=== PATIENT | male | born 1985 | race Caucasian/White ===

== ENCOUNTER 2018-03-20 19:14 | Emergency (ER) | payer SELFPAY ==
--- NOTE | 2018-03-20 19:43 | ED PDOC ---
HPI: General Adult Chief Complaint (Provider): PSYCH EVAL History Per: Patient (32 Y/O MALE HERE FOR EVALUATION PRIOR TO INCARCERATION. HAS H/O "MENTAL HEALTH PROBLEMS" AND HAS BEEN NONCOMPLIANT ON [employer] X 4 WEEKS. STATES HE FEELS DEPRESSED SECONDARY TO RECENT ARREST. FEELS THAT HE IS CONTINUOUSLY GETTING IN TROUBLE WITHOUT REASON.) <Susana Hines - Last Filed: 03/20/18 19:44> <Ray Villar - Last Filed: 03/21/18 04:04> Time Seen by Provider: 03/20/18 19:41 Chief Complaint (Nursing): Medical Clearance Past Medical History Reviewed: Historical Data, Nursing Documentation, Vital Signs Vital Signs: Last Vital Signs Temp 98.0 F 03/20/18 19:17 Pulse 64 03/20/18 19:17 Resp 16 03/20/18 19:17 BP 144/78 03/20/18 19:17 Pulse Ox 98 03/20/18 19:17 - Family History Family History: States: No Known Family Hx <Susana Hines - Last Filed: 03/20/18 19:44> Vital Signs: Last Vital Signs Temp 98.3 F 03/21/18 02:48 Pulse 86 03/21/18 02:48 Resp 18 03/21/18 02:48 BP 127/66 03/21/18 02:48 Pulse Ox 100 03/21/18 02:48 <Ray Villar - Last Filed: 03/21/18 04:04> - Allergies Allergies/Adverse Reactions: Allergies Allergy/AdvReac Type Severity Reaction Status Date / Time No Known Allergies Allergy Verified 03/20/18 19:17 Review of Systems ROS Statement: Except As Marked, All Systems Reviewed And Found Negative <Susana Hines - Last Filed: 03/20/18 19:44> Physical Exam - Reviewed Nursing Documentation Reviewed: Yes Vital Signs Reviewed: Yes - Physical Exam Appears: Positive for: Well, Non-toxic, No Acute Distress Head Exam: Positive for: ATRAUMATIC, NORMAL INSPECTION, NORMOCEPHALIC Skin: Positive for: Normal Color, Warm, DRY Eye Exam: Positive for: EOMI, Normal appearance, PERRL ENT: Positive for: Normal ENT Inspection Neck: Positive for: Normal, Painless ROM Cardiovascular/Chest: Positive for: Regular Rate, Rhythm Respiratory: Positive for: CNT, Normal Breath Sounds Gastrointestinal/Abdominal: Positive for: Normal Exam, Soft Back: Positive for: Normal Inspection Extremity: Positive for: Normal ROM Neurologic/Psych: Positive for: Alert, Oriented <Susana Hines - Last Filed: 03/20/18 19:44> - ECG O2 Sat by Pulse Oximetry: 98 <Susana Hines - Last Filed: 03/20/18 19:44> Disposition - Patient ED Disposition Is Patient to be Admitted: Transfer of Care - Disposition Disposition: Transfer of Care Disposition Time: 20:00 Patient Signed Over To: Trish Holder Handoff Comments: PENDING CRISIS EVAL <Susana Hines - Last Filed: 03/20/18 19:44> <Ray Villar - Last Filed: 03/21/18 04:04> - Clinical Impression Clinical Impression: Medical clearance for incarceration, Adjustment disorder - Disposition Condition: FAIR Additional Instructions: Patient medically and psychiatrically cleared for incarceration Instructions: Adjustment Disorder - PA / BELLY DANCER / Resident Statement MD/DO has reviewed & agrees with the documentation as recorded. <Ray Villar - Last Filed: 03/21/18 04:04>
--- NOTE | 2018-03-21 02:36 | ED PDOC ---
- ECG O2 Sat by Pulse Oximetry: 98 - Progress ED Course And Treament: Case endorsed to commercial insurance underwriter from [employer] pending crisis eval Patient evaluated by dobie worker and cleared for discharge as per Dr. Bhakta <Trish Holder - Last Filed: 03/21/18 02:34> Disposition - POA Present On Arrival: None - Disposition Disposition: Discharged/Transfer to Law Enforcement Disposition Time: 02:36 <Trish Holder - Last Filed: 03/21/18 02:34> <Ray Villar - Last Filed: 03/21/18 06:48> - Clinical Impression Clinical Impression: Medical clearance for incarceration, Adjustment disorder - Disposition Condition: FAIR Additional Instructions: Patient medically and psychiatrically cleared for incarceration Instructions: Adjustment Disorder - PA / LIFE AGENT / Resident Statement /DO has reviewed & agrees with the documentation as recorded. <Ray Villar - Last Filed: 03/21/18 06:48>
[2018-03-21 02:49] VITALS: BP 127/66; RESP 18; O2SAT 100
[2018-03-21 03:25] VITALS: PULSE 86; TEMP 98.3
== END 2018-03-21 02:50 ==
LOC: H.ER 19:14
DX: F43.20 Adjustment disorder, unspecified (principal); Z91.19 Patient's noncompliance with other medical treatment and regimen; Z00.8 Encounter for other general examination

== ENCOUNTER 2018-03-23 18:52 | Emergency (ER) | payer SELFPAY ==
[2018-03-23 19:54] VITALS: BP 125/75; PULSE 92; RESP 16; TEMP 99.1; O2SAT 96
--- NOTE | 2018-03-23 21:08 | ED PDOC ---
HPI: CCC, URI, Sore Throat Chief Complaint (Provider): ENT Problem History Per: Patient History/Exam Limitations: no limitations Onset/Duration Of Symptoms: Persistent (x2 weeks) Current Symptoms Are (Timing): Still Present Additional Complaint(s): 32 year old male arrives to ED with a complaint of bad breath for the past 2 weeks. He denies any throat pain or difficulty breathing. Of note, patient additionally reports a scratchy throat after recent release from care home. Pt. also reports h/o "mental issues" and states he doesn't have any of his meds to take, requesting psych eval but denies any SI/HI PMD: none provided <Dora Cui - Last Filed: 03/23/18 23:19> <Ray Villar - Last Filed: 03/26/18 04:37> Time Seen by Provider: 03/23/18 19:57 Chief Complaint (Nursing): ENT Problem Past Medical History Reviewed: Historical Data, Nursing Documentation, Vital Signs Vital Signs: Last Vital Signs Temp 99.1 F 03/23/18 19:52 Pulse 92 H 03/23/18 19:52 Resp 16 03/23/18 19:52 BP 125/75 03/23/18 19:52 Pulse Ox 96 03/23/18 19:52 - Medical History PMH: Anxiety, Bipolar Disorder, Depression, Schizophrenia Denies: Diabetes, Hepatitis, HIV, HTN, Seizures, Sexually Transmitted Disease - Family History Family History: States: Unknown Family Hx <Dora Cui - Last Filed: 03/23/18 23:19> Vital Signs: Last Vital Signs Temp 99.1 F 03/23/18 19:52 Pulse 92 H 03/23/18 19:52 Resp 16 03/23/18 19:52 BP 125/75 03/23/18 19:52 Pulse Ox 96 03/24/18 12:38 <Ray Villar - Last Filed: 03/26/18 04:37> - Allergies Allergies/Adverse Reactions: Allergies Allergy/AdvReac Type Severity Reaction Status Date / Time No Known Allergies Allergy Verified 03/23/18 19:52 Review of Systems ROS Statement: Except As Marked, All Systems Reviewed And Found Negative ENT: Positive for: Other (bad breath with scratchy throat). Negative for: Throat Pain Respiratory: Negative for: Other (dyspnea) <CuiDora - Last Filed: 03/23/18 23:19> Physical Exam - Reviewed Nursing Documentation Reviewed: Yes Vital Signs Reviewed: Yes - Physical Exam Appears: Positive for: Non-toxic, No Acute Distress Skin: Positive for: Normal Color Eye Exam: Positive for: Normal appearance ENT: Negative for: Pharyngeal Erythema, Tonsillar Exudate, Tonsillar Swelling (or erythema) Neck: Positive for: Normal, Supple Cardiovascular/Chest: Positive for: Regular Rate, Rhythm Respiratory: Positive for: Normal Breath Sounds. Negative for: Respiratory Distress Neurologic/Psych: Positive for: Alert (x3), Oriented. Negative for: Motor/Sensory Deficits <Dora Cui Carlos - Last Filed: 03/23/18 23:19> - ECG O2 Sat by Pulse Oximetry: 96 (RA) Pulse Ox Interpretation: Normal <Dora Cui Carlos - Last Filed: 03/23/18 23:19> - Laboratory Results Result Diagrams: 03/24/18 01:09 03/24/18 01:09 <Ray Villar - Last Filed: 03/26/18 04:37> Medical Decision Making Medical Decision Making: Time: 1999 Initial Plan: * Rapid strep Time: 2029 --Patient remains concerned about hard material or stone from tonsils despite (- ) findings on exam. He requests a tonsillectomy be performed tonight by an ENT doctor to rid "bad breath". There is no infectious ideology and patient declined strep test when offered by provider. Patient expresses having mental health issues and requests a psychiatric evaluation. --Psychiatric evaluation initiated. demurrage worker at bedside. Crisis recommends [facility] screen. Pt. eloped from ED, despite being followed by security. PD called and pt. brought back to ED by police. Pt. changed, belongings taken, and 1:1 initiated. Pt accepting and signing in for psych admission. ----- --- ScribeAttestation: Documented byKeyla Law, acting as a scribe for Dora Cui PA-C. Provider ScribeAttestation: All medical record entries made by the Scribe were at my direction and personally dictated by me. I have reviewed the chart and agree that the record accurately reflects my personal performance of the history, physical exam, medical decision making, and the department course for this patient. I have also personally directed, reviewed, and agree with the discharge instructions and disposition. <Dora Cui - Last Filed: 03/23/18 23:19> Disposition - Patient ED Disposition Is Patient to be Admitted: Yes Discussed With DrLuis Alberto: Boubacar Garcia Comment: by crisis Doctor Will See Patient In The: ED - Disposition Disposition Time: 23:20 <Dora Cui - Last Filed: 03/23/18 23:19> <Ray Villar - Last Filed: 03/26/18 04:37> - Clinical Impression Clinical Impression: Schizophrenia - Disposition Condition: FAIR - PA / BODY SHOP FLOORPERSON / Resident Statement / has reviewed & agrees with the documentation as recorded. <Ray Villar - Last Filed: 03/26/18 04:37>
[2018-03-24 03:26] LABS: MEAN CORPUSCULAR HGB CONC 33.2 g/dL (33.0-37.0); MEAN PLATELET VOLUME 9.1 fl (7.2-11.7); NRBC % 0.1 % (0.0-0.0)
[2018-03-24 03:28] LABS: BASO % 0.3 % (0.0-2.0); EOS % 0.7 % (0.0-4.0); LYMPH # 2.1 K/uL (1.0-4.3); MEAN CELL VOLUME 87.5 fl (80.0-94.0); MEAN CORPUSCULAR HEMOGLOBIN 29.1 pg (27.0-31.0); MONO # 0.9 K/uL (0.0-0.8); MONO % 11.8 % (0.0-10.0); NEUT # 4.3 K/uL (1.8-7.0); NEUT % 58.2 % (50.0-75.0); RBC 5.17 Mil/uL (4.40-5.90); WHITE BLOOD COUNT 7.4 K/uL (4.8-10.8)
[2018-03-24 03:31] LABS: ALB/GLOB RATIO 1.2 (1.0-2.1); ALBUMIN 4.7 g/dL (3.5-5.0); ALT/SGPT 33 U/L (21-72); AST/SGOT 34 U/L (17-59); BLOOD UREA NITROGEN 9 mg/dl (9-20); CALCIUM 9.7 mg/dL (8.4-10.2); GFR NON-AFRICAN AMERICAN > 60
[2018-03-24 03:42] LABS: BARBITURATES, UR NEGATIVE (NEGATIVE); BENZODIAZEPINES, UR NEGATIVE (NEGATIVE); OPIATES, UR NEGATIVE (NEGATIVE); PHENCYCLIDINE, UR NEGATIVE (NEGATIVE)
[2018-03-24 06:49] LABS: URINE BILIRUBIN NEGATIVE (NEGATIVE); URINE BLOOD NEGATIVE (NEGATIVE); URINE CLARITY SLIGHTY-CLOUDY (Clear); URINE COLOR YELLOW (YELLOW); URINE GLUCOSE (UA) NEG (Normal); URINE LEUKOCYTE ESTERASE NEG Leu/uL (Negative); URINE PROTEIN 30 mg/dL (NEGATIVE)
--- NOTE | 2018-03-24 09:13 | CARD ---
APPROVED REPORT Date of service: 03/23/2018 EKG Measurement Heart [id number] <Conclusion> Normal sinus rhythm Normal ECG
--- NOTE | 2018-03-24 10:49 | RAD ---
Date of service: 03/24/2018 HISTORY: admission COMPARISON: No prior. FINDINGS: LUNGS: Lungs are hyperinflated without focal infiltrate. There may be some very mild subtle interstitial change. There is a possible stent overlying one of the right lower lobe vessels adjacent to the right hilum although this should be correlated clinically. There is subtle minimal scarring seen in the right costophrenic angle. PLEURA: No significant pleural effusion identified, no pneumothorax apparent. CARDIOVASCULAR: Normal. OSSEOUS STRUCTURES: No significant abnormalities. VISUALIZED UPPER ABDOMEN: Normal. OTHER FINDINGS: None. IMPRESSION: No focal infiltrate or effusion. No CHF. Possible mild hyperinflation of the lungs. Correlation with prior studies
--- NOTE | 2018-03-24 12:38 | ED PDOC ---
- Laboratory Results Result Diagrams: 03/24/18 01:09 03/24/18 01:09 - ECG O2 Sat by Pulse Oximetry: 96 (RA) Medical Decision Making Medical Decision Making: Evaluated by psych. Schizophrenia stable. No SI/HI Disposition - Clinical Impression Clinical Impression: Schizophrenia - POA Present On Arrival: None - Disposition Disposition: Routine/Home Disposition Time: 12:37 Condition: STABLE
== END 2018-03-24 14:08 | disposition home or self-care (01) ==
LOC: H.ER 18:52 → H.ERHOLD 23:08 → UNDOADMIN 23:08 → UNDODISIN 03-24 14:08
DX: F20.9 Schizophrenia, unspecified (principal); F31.9 Bipolar disorder, unspecified; F32.9 Major depressive disorder, single episode, unspecified; F41.9 Anxiety disorder, unspecified; J02.9 Acute pharyngitis, unspecified
CPT/HCPCS: 71045; 80053; 81003; 85025; 93005; 99282; G0480